=== PATIENT | female | born 1995 | race Caucasian/White ===

== ENCOUNTER 2019-03-25 11:10 | Inpatient (IN) | payer OTHER ==
[2019-03-25 13:37] VITALS: BMI 18.1
--- NOTE | 2019-03-25 14:34 | HP ---
COWS - Scale Resting Pulse: 1= [place] 81-100 Sweatin= Chills/Flushing Restless Observation: 0= Sits Still Pupil Size: 0= Normal to Room Light Bone or Joint Aches: 1= Mild Discomfort Runny Nose/ Eye Tearin= Runny Nose/Eyes GI Upset > 30mins: 2= Nausea/Diarrhea Tremor Observation: 2= Slight Tremor Visible Yawning Observation: 1= 1-2x During Session Anxiety or Irritability: 1=Feels Anxious/Irritable Goose Flesh Skin: 0=Smooth Skin COWS Score: 11 CIWA Score Nausea/Vomitin Muscle Tremors: 5 Anxiety: 4-Mod. Anxious/Guarded Agitation: 1-Slight > Activity Paroxysmal Sweats: 1-Minimal Palms Moist Orientation: 1-Uncertain about Date Tacttile Disturbances: 0-None Auditory Disturbances: 1-Very Mild Visual Disturbances: 2-Mild Sensitivity Headache: 2-Mild CIWA-Ar Total Score: 19 - Admission Criteria OAS Guidelines: Admission for Medically Managed Detox: Requires at least one of the followin. CIWA greater than 12 2. Seizures within the past 24 hours 3. Delirium tremens within the past 24 hours 4. Hallucinations within the past 24 hours 5. Acute intervention needed for co occurring medical disorder 6. Acute intervention needed for co occurring psychiatric disorder 7. Severe withdrawal that cannot be handled at a lower level of care (continued vomiting, continued diarrhea, abnormal vital signs) requiring intravenous medication and/or fluids 8. 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 Last time in detox was in June 2018 while in [place]. She has a history of overdose and black outs, denies seizures. Exam Limitations: No Limitations - Ebola screening Have you traveled outside of the country in the last 21 days: No (N) Have you had contact with anyone from an Ebola affected area: No Do you have a fever: No - Review of Systems Constitutional: Loss of Appetite, Malaise, Changes in sleep, Weakness EENT: reports: Nose Congestion Respiratory: reports: No Symptoms reported Cardiac: reports: No Symptoms Reported GI: reports: Nausea, Abdominal cramping : reports: Dysuria Musculoskeletal: reports: Back Pain, Muscle Pain Integumentary: reports: Dryness Neuro: reports: Headache, Tremors, Weakness Endocrine: reports: No Symptoms Reported Hematology: reports: No Symptoms Reported Psychiatric: reports: Judgement Intact, Mood/Affect Appropiate, Anxious Other Systems: Reviewed and Negative Patient History - Patient Medical History Hx Seizures: Yes (xanax related 2016) Hx Diabetes: No Hx Gastrointestinal Disorders: No Hx Liver Disease: Yes (elevated liver tests sometimes 'due to ketamine') Hx Genitourinary Disorders: No Hx Sexually Transmitted Disorders: Yes (hx gonorrhea, herpes) Hx Renal Disease (ESRD): No Hx Thyroid Disease: No Hx Human Immunodeficiency Virus (HIV): No Hx Hepatitis C: No Hx Depression: Yes (hx meds - hx psych - none now) Hx Suicide Attempt: No Hx Bipolar Disorder: No Hx Schizophrenia: No - Patient Surgical History Past Surgical History: No - PPD History Previous Implant?: Yes Documented Results: Negative w/o proof Implanted On Prior [facility] Admission?: No PPD to be Administered?: Yes - Reproductive History Patient is a Female of Child Bearing Age (11 -55 yrs old): Yes Patient : No - Smoking Cessation Smoking history: Current every day smoker Have you smoked in the past 12 months: Yes Aproximately how many cigarettes per day: 1 (juule) Initiated information on smoking cessation: Yes 'Breaking Loose' booklet given: 03/25/19 (give on floor) - Substance & Tx. History Hx Alcohol Use: No Hx Substance Use: Yes Substance Use Type: Cocaine, Marijuana, Opiates, Tranquilizers Hx Substance Use Treatment: Yes (detox,hx suboxone, hx methadone) - Substances abused Heroin Substance route: Injection Frequency: Daily Amount used: 10-12 bags/day (URINE TOX + FENTANYL ONLY) Age of first use: 19 Date of last use: 03/25/19 Ketamine Substance route: Inhalation Frequency: Daily Amount used: 2 gm/day Age of first use: 18 Date of last use: 03/25/19 Alprazolam (Xanax) Frequency: 3-6 times per week Amount used: two bars Age of first use: 17 Date of last use: 03/25/19 Marijuana/Hashish Substance route: Smoking Frequency: Daily Amount used: $40 Age of first use: 13 Date of last use: 03/25/19 Cocaine Substance route: Inhalation Frequency: 1-2 times per week Amount used: 2 lines Age of first use: 17 Date of last use: 03/22/19 Family Disease History - Family Disease History Family Disease History: Other: Father (living, ), Mother (no contact - hx etoh and drugs), Brother (one - healthy - depression) Admission Physical Exam [facility] - Vital Signs Vital Signs: Vital Signs - 24 hr 03/25/19 13:25 Temperature 97.3 F L Pulse Rate 88 Respiratory 20 Rate Blood Pressure 106/66 - Physical General Appearance: Yes: Nourished, Appropriately Dressed, Mild Distress, Anxious HEENTM: Yes: EOMI, Hearing grossly Normal, Normocephalic, Normal Voice Respiratory: Yes: Normal Breath Sounds, No Respiratory Distress Neck: Yes: No masses,lesions,Nodules, Supple Breast: Yes: Breast Exam Deferred Cardiology: Yes: Regular Rhythm, Regular Rate Abdominal: Yes: Flat, Soft Genitourinary: Yes: Dysuria Back: Yes: Normal Inspection Musculoskeletal: Yes: full range of Motion, Gait Steady, Back pain, Muscle Pain Extremities: Yes: Normal Inspection, Normal Range of Motion, Tremors Neurological: Yes: Alert, Normal Response Integumentary: Yes: Normal Color, Dry, Warm, Track Huggins (antecubital space right arm - no overt abscess noted) Lymphatic: Yes: Within Normal Limits Cleared for Admission [facility] - Detox or Rehab [facility] Level of Care: Medically Managed Detox Regimen/Protocol: Methadone/Valium Breathalyzer - Breathalyzer Breathalyzer: 0 Urine Drug Screen - Test Device Lot number: [id number] Expiration date: 12/01/20 - Control Is test valid?: Yes - Results Drug screen NEGATIVE: No Urine drug screen results: THC-Marijuana, PAWEL-Cocaine, FEN-Fentanyl, BZO- Benzodiazepines Inpatient Rehab Admission - Rehab Decision to Admit Inpatient rehab admission?: No
[2019-03-25] MEDS ORDERED: MAGNESIUM CITRATE 300 ML BOTTLE PO PRN (14:48)
[2019-03-25] MEDS ORDERED: BISMUTH SUBSALICYLATE 524 MG/30 ML UD PO PRN (14:48)
[2019-03-25] MEDS ORDERED: MENTHOL/PHENOL 1 EACH UD MM PRN (14:48)
[2019-03-25] MEDS ORDERED: ACETAMINOPHEN 325 MG TABLET (FP) PO PRN (14:48)
[2019-03-25] MEDS ORDERED: MAG HYDROX/AL HYDROX/SIMETH 30 ML UNIT-DOSE CUP PO PRN (14:48)
[2019-03-25] MEDS ORDERED: IBUPROFEN 400 MG TABLET (FP) PO PRN (14:48)
[2019-03-25] MEDS ORDERED: MAGNESIUM HYDROX 2400MG/30ML ORAL SUSPENSION 30 ML CUP PO PRN (14:48)
[2019-03-25] MEDS ORDERED: diazePAM 5 MG TABLET PO ONE (14:51)
[2019-03-25] MEDS ORDERED: METHADONE HCL 10 MG TABLET (FOR DETOX USE ONLY) PO ONE ×2 (14:52→23:00)
[2019-03-25] MEDS: diazePAM 5 MG TABLET PO SCH (22:03)
[2019-03-25] MEDS: THIAMINE HCL 100 MG TABLET (FP) PO SCH (22:03)
[2019-03-25] MEDS: MELATONIN 5 MG TABLETS PO PRN (22:03)
[2019-03-26] MEDS: diazePAM 5 MG TABLET PO SCH ×3 (05:40→21:11)
--- NOTE | 2019-03-26 08:54 | CONSULT ---
[facility] Psychiatric Consult - Data Date of interview: 03/26/19 Admission source: [facility] Identifying data: 23 y/o female single, no children, domiciled, employed as a model Substance Abuse History: This is her first admission to [facility], she has a history of polysubstance use disorder Heroin, Cocaine, Xanax, Cannabis, Ketamine. She has been using drugs daily for that past 6 mo following her discharge from [facility] 7 mo ago. She was detoxed in [place] last year. She explained that she was on Meyhadone , dislike the taste, she tried Suboxone and felt the treatment has been ineffective Medical History: Her medical history is unremarkable Psychiatric History: She explained that she feels depressed with poor sleep, poor appetite and weight loss. She has no prior contact with mental health intensive care medicine specialist. She denies suicidal or homicadal ideation Physical/Sexual Abuse/Trauma History: Denied Mental Status Exam - Mental Status Exam Alert and Oriented to: Place, Person Cognitive Function: Fair Patient Appearance: Well Groomed Mood: Depressed Affect: Appropriate Patient Behavior: Passive, Fatigued, Appropriate, Cooperative Speech Pattern: Clear Voice Loudness: Normal Thought Process: Intact Thought Disorder: Not Present Hallucinations: None Suicidal Ideation: None Homicidal Ideation: None Insight/Judgement: Poor Sleep: Fair Appetite: Poor, Weight loss Muscle strength/Tone: Normal Gait/Station: Normal Psychiatric Findings - Problem List ([place] 1, 2,3) (1) Depression Current Visit: Yes Status: Acute (2) Opioid abuse Current Visit: Yes Status: Acute (3) Benzodiazepine abuse Current Visit: Yes Status: Acute - Initial Treatment Plan Initial Treatment Plan: Continue detox treatment. Monitor progress. No medication treatment initiated at this time, she woud benefit from additional psychiatric evaluation and monitoring to assess the need for SSRI medication treatment
[2019-03-26] MEDS ORDERED: METHADONE HCL 10 MG TABLET (FOR DETOX USE ONLY) PO ONE (10:00)
[2019-03-26] MEDS: PRENATAL VITAMINS W/ FOLIC ACID TABLET (FP) PO SCH (10:13)
[2019-03-26 10:45] LABS: HEMATOCRIT 34.4 % (32.4-45.2); HEMOGLOBIN 11.6 GM/dL (10.7-15.3); MCH 31.3 pg (25.7-33.7); MCHC 33.7 g/dl (32.0-36.0); MEAN CELL VOLUME 92.7 fl (80-96); MEAN PLT VOLUME 8.5 fl (7.5-11.1); PLATELET COUNT 267 K/MM3 (134-434); RBC 3.71 M/mm3 (3.60-5.2); RDW 13.9 % (11.6-15.6); WHITE BLOOD COUNT 4.9 K/mm3 (4.0-10.0)
[2019-03-26 10:54] LABS: ALBUMIN 3.4 g/dl (3.4-5.0); BILIRUBIN,TOTAL 0.3 mg/dL (0.2-1); BLOOD UREA NITROGEN 6.4 mg/dL (7-18); CALCIUM 8.6 mg/dL (8.5-10.1); CREATININE 0.7 mg/dL (0.55-1.3); POTASSIUM 4.2 mmol/L (3.5-5.1); TOT PROT 6.8 g/dl (6.4-8.2)
[2019-03-26 11:14] LABS: URINE APPEARANCE TURBID; URINE BILIRUBIN NEGATIVE (NEGATIVE); URINE COLOR YELLOW; URINE GLUCOSE (UA) NEGATIVE (NEGATIVE); URINE KETONE NEGATIVE (NEGATIVE); URINE LEUK ESTERASE NEGATIVE (NEGATIVE); URINE NITRITE NEGATIVE (NEGATIVE); URINE PROTEIN NEGATIVE (NEGATIVE); URINE UROBILINOGEN 0.2 mg/dL (0.2-1.0)
--- NOTE | 2019-03-26 12:59 | EKG ---
Test Reason : Blood Pressure : / mmHG Vent. Rate : 063 BPM Atrial Rate : 063 BPM P-R Int : 174 ms QRS Dur : 090 ms QT Int : 422 ms P-R-T Axes : 057 075 059 degrees QTc Int : 431 ms NORMAL SINUS RHYTHM WITH SINUS ARRHYTHMIA NORMAL ECG NO PREVIOUS ECGS AVAILABLE Confirmed by PHYLLIS CABRERA MD ([id number]) on 03/26/2019 12:59:24 PM Referred By: SHARMAINE PHAM Confirmed By:PHYLLIS CABRERA MD
--- NOTE | 2019-03-26 16:32 | PN ---
[facility] CIWA - CIWA Score Nausea/Vomitin-Mild Nausea/No Vomiting Muscle Tremors: 4-Moderate,w/Arms Extend Anxiety: 4-Mod. Anxious/Guarded Agitation: 3 Paroxysmal Sweats: 3 Orientation: 0-Oriented Tacttile Disturbances: 0-None Auditory Disturbances: 0-None Visual Disturbances: 0-None Headache: 0-None Present CIWA-Ar Total Score: 15 S COWS - Scale Resting Pulse: 0= [place] 80 or Below Sweatin=Flushed/Facial Moisture Restless Observation: 3= Extraneous Movement Pupil Size: 0= Normal to Room Light Bone or Joint Aches: 2= Severe Diffuse Aches Runny Nose/ Eye Tearin= Runny Nose/Eyes GI Upset > 30mins: 3= Vomiting/Diarrhea Tremor Observation of Outstretched Hands: 2= Slight Tremor Visible Yawning Observation: 0= None Anxiety or Irritability: 2=Irritable/Anxious Goose Flesh Skin: 0=Smooth Skin COWS Score: 16 [facility] Progress Note (SOAP) Subjective: Nausea, body ache, sweating, chills, tremor, interrupted sleep Objective: 03/26/19 16:29 Last Vital Signs Temp Pulse Resp BP Pulse Ox 98.1 F 76 18 105/61 03/26/19 14:21 03/26/19 14:21 03/26/19 14:21 03/26/19 14:21 Laboratory Tests 03/25/19 03/26/19 03/26/19 07:50 08:00 08:00 WBC 4.9 RBC 3.71 Hgb 11.6 Hct 34.4 MCV 92.7 MCH 31.3 MCHC 33.7 RDW 13.9 Plt Count 267 MPV 8.5 Sodium 141 Potassium 4.2 Chloride 106 Carbon Dioxide 28 Anion Gap 7 L BUN 6.4 L Creatinine 0.7 Est GFR (CKD-EPI)AfAm 140.55 Est GFR (CKD-EPI)NonAf 121.27 Random Glucose 90 Calcium 8.6 Total Bilirubin 0.3 AST 25 ALT 72 H Alkaline Phosphatase 170 H Total Protein 6.8 Albumin 3.4 Urine Color Yellow Urine Appearance Turbid Urine pH 6.0 Ur Specific [place] 1.020 Urine Protein Negative Urine Glucose (UA) Negative Urine Ketones Negative Urine Blood Negative Urine Nitrite Negative Urine Bilirubin Negative Urine Urobilinogen 0.2 Ur Leukocyte Esterase Negative RPR Titer 03/26/19 08:00 WBC RBC Hgb Hct MCV MCH MCHC RDW Plt Count MPV Sodium Potassium Chloride Carbon Dioxide Anion Gap BUN Creatinine Est GFR (CKD-EPI)AfAm Est GFR (CKD-EPI)NonAf Random Glucose Calcium Total Bilirubin AST ALT Alkaline Phosphatase Total Protein Albumin Urine Color Urine Appearance Urine pH Ur Specific [place] Urine Protein Urine Glucose (UA) Urine Ketones Urine Blood Urine Nitrite Urine Bilirubin Urine Urobilinogen Ur Leukocyte Esterase RPR Titer Nonreactive Labs reviewed: alk phos 170 Assessment: 03/26/19 16:31 Withdrawal symptoms Elevated alk phos noted Plan: Continue detox Encouraged PO water hydration Elevated alkaline phosphatase: could be r/t IV drug use, repeat alk phos in AM
[2019-03-26] MEDS: diazePAM 5 MG TABLET PO PRN (17:05)
[2019-03-26] MEDS: MELATONIN 5 MG TABLETS PO PRN (21:11)
[2019-03-26] MEDS: METHOCARBAMOL 500 MG TABLET PO PRN (21:11)
[2019-03-26] MEDS: THIAMINE HCL 100 MG TABLET (FP) PO SCH (21:11)
[2019-03-26] MEDS: cloNIDine HCL 0.1 MG TABLET PO PRN (22:46)
[2019-03-27] MEDS: diazePAM 5 MG TABLET PO PRN ×3 (05:12→17:58)
[2019-03-27] MEDS ORDERED: METHADONE HCL 10 MG TABLET (FOR DETOX USE ONLY) PO ONE (10:00)
[2019-03-27] MEDS: PRENATAL VITAMINS W/ FOLIC ACID TABLET (FP) PO SCH (11:18)
[2019-03-27] MEDS: diazePAM 5 MG TABLET PO SCH ×2 (11:18→22:18)
--- NOTE | 2019-03-27 13:56 | PN ---
[facility] CIWA - CIWA Score Nausea/Vomitin-No Nausea/No Vomiting Muscle Tremors: 3 Anxiety: 3 Agitation: 3 Paroxysmal Sweats: 3 Orientation: 0-Oriented Tacttile Disturbances: 0-None Auditory Disturbances: 0-None Visual Disturbances: 0-None Headache: 0-None Present CIWA-Ar Total Score: 12 S COWS - Scale Resting Pulse: 0= [place] 80 or Below Sweatin= Chills/Flushing Restless Observation: 1= Difficult to Sit Still Pupil Size: 0= Normal to Room Light Bone or Joint Aches: 2= Severe Diffuse Aches Runny Nose/ Eye Tearin= Runny Nose/Eyes GI Upset > 30mins: 0= None Tremor Observation of Outstretched Hands: 1= Tremor [place], Not Seen Yawning Observation: 1= 1-2x During Session Anxiety or Irritability: 2=Irritable/Anxious Goose Flesh Skin: 0=Smooth Skin COWS Score: 10 [facility] Progress Note (SOAP) Subjective: sweats shakes body aches stomach cramp interrupted sleep Objective: 03/27/19 13:55 Vital Signs Temperature 98.1 F 03/27/19 09:22 Pulse Rate 72 03/27/19 09:22 Respiratory Rate 16 03/27/19 09:22 Blood Pressure 109/59 L 03/27/19 09:22 O2 Sat by Pulse Oximetry (%) Laboratory Tests 03/25/19 03/26/19 03/26/19 07:50 08:00 08:00 WBC 4.9 RBC 3.71 Hgb 11.6 Hct 34.4 MCV 92.7 MCH 31.3 MCHC 33.7 RDW 13.9 Plt Count 267 MPV 8.5 Sodium 141 Potassium 4.2 Chloride 106 Carbon Dioxide 28 Anion Gap 7 L BUN 6.4 L Creatinine 0.7 Est GFR (CKD-EPI)AfAm 140.55 Est GFR (CKD-EPI)NonAf 121.27 Random Glucose 90 Calcium 8.6 Total Bilirubin 0.3 AST 25 ALT 72 H Alkaline Phosphatase 170 H Total Protein 6.8 Albumin 3.4 Urine Color Yellow Urine Appearance Turbid Urine pH 6.0 Ur Specific [place] 1.020 Urine Protein Negative Urine Glucose (UA) Negative Urine Ketones Negative Urine Blood Negative Urine Nitrite Negative Urine Bilirubin Negative Urine Urobilinogen 0.2 Ur Leukocyte Esterase Negative RPR Titer 03/26/19 08:00 WBC RBC Hgb Hct MCV MCH MCHC RDW Plt Count MPV Sodium Potassium Chloride Carbon Dioxide Anion Gap BUN Creatinine Est GFR (CKD-EPI)AfAm Est GFR (CKD-EPI)NonAf Random Glucose Calcium Total Bilirubin AST ALT Alkaline Phosphatase Total Protein Albumin Urine Color Urine Appearance Urine pH Ur Specific [place] Urine Protein Urine Glucose (UA) Urine Ketones Urine Blood Urine Nitrite Urine Bilirubin Urine Urobilinogen Ur Leukocyte Esterase RPR Titer Nonreactive aaox3 ambulating no acute distress Assessment: 03/27/19 13:55 withdrawal sx Plan: continue detox increase fluids
[2019-03-27] MEDS: cloNIDine HCL 0.1 MG TABLET PO PRN (16:52)
[2019-03-27] MEDS: THIAMINE HCL 100 MG TABLET (FP) PO SCH (22:18)
[2019-03-27] MEDS: MELATONIN 5 MG TABLETS PO PRN (22:19)
[2019-03-27] MEDS: METHOCARBAMOL 500 MG TABLET PO PRN (22:20)
[2019-03-28] MEDS ORDERED: diazePAM 5 MG TABLET PO SCH (06:00)
[2019-03-28] MEDS ORDERED: METHADONE HCL 10 MG TABLET (FOR DETOX USE ONLY) PO ONE (10:00)
[2019-03-28] MEDS: PRENATAL VITAMINS W/ FOLIC ACID TABLET (FP) PO SCH (10:33)
[2019-03-28] MEDS: diazePAM 5 MG TABLET PO PRN (10:35)
[2019-03-28] MEDS: METHOCARBAMOL 500 MG TABLET PO PRN ×2 (10:36→22:30)
[2019-03-28] MEDS ORDERED: NICOTINE POLACRILEX 4 MG GUM BUC PRN (11:02)
--- NOTE | 2019-03-28 11:05 | PN ---
S CIWA - CIWA Score Nausea/Vomitin-No Nausea/No Vomiting Muscle Tremors: 3 Anxiety: 1-Mildly Anxious Agitation: 1-Slight > Activity Paroxysmal Sweats: 1-Minimal Palms Moist Orientation: 0-Oriented Tacttile Disturbances: 0-None Auditory Disturbances: 0-None Visual Disturbances: 0-None Headache: 0-None Present CIWA-Ar Total Score: 6 [facility] COWS - Scale Resting Pulse: 1= [place] 81-100 Sweatin= Chills/Flushing Restless Observation: 1= Difficult to Sit Still Pupil Size: 0= Normal to Room Light Bone or Joint Aches: 1= Mild Discomfort Runny Nose/ Eye Tearin= None GI Upset > 30mins: 0= None Tremor Observation of Outstretched Hands: 1= Tremor [place], Not Seen Yawning Observation: 1= 1-2x During Session Anxiety or Irritability: 1=Feels Anxious/Irritable Goose Flesh Skin: 0=Smooth Skin COWS Score: 7 S Progress Note (SOAP) Subjective: sweats anxiety i am feeling a bit better Objective: 03/28/19 11:04 Vital Signs Temperature 98.1 F 03/28/19 09:48 Pulse Rate 100 H 03/28/19 09:48 Respiratory Rate 16 03/28/19 09:48 Blood Pressure 106/70 03/28/19 09:48 O2 Sat by Pulse Oximetry (%) Laboratory Tests 03/25/19 03/25/19 03/26/19 07:50 14:21 08:00 WBC 4.9 RBC 3.71 Hgb 11.6 Hct 34.4 MCV 92.7 MCH 31.3 MCHC 33.7 RDW 13.9 Plt Count 267 MPV 8.5 Sodium Potassium Chloride Carbon Dioxide Anion Gap BUN Creatinine Est GFR (CKD-EPI)AfAm Est GFR (CKD-EPI)NonAf Random Glucose Calcium Total Bilirubin AST ALT Alkaline Phosphatase Total Protein Albumin Urine Color Yellow Urine Appearance Turbid Urine pH 6.0 Ur Specific [place] 1.020 Urine Protein Negative Urine Glucose (UA) Negative Urine Ketones Negative Urine Blood Negative Urine Nitrite Negative Urine Bilirubin Negative Urine Urobilinogen 0.2 Ur Leukocyte Esterase Negative POC Urine HCG, Qual Negative RPR Titer 03/26/19 03/26/19 08:00 08:00 WBC RBC Hgb Hct MCV MCH MCHC RDW Plt Count MPV Sodium 141 Potassium 4.2 Chloride 106 Carbon Dioxide 28 Anion Gap 7 L BUN 6.4 L Creatinine 0.7 Est GFR (CKD-EPI)AfAm 140.55 Est GFR (CKD-EPI)NonAf 121.27 Random Glucose 90 Calcium 8.6 Total Bilirubin 0.3 AST 25 ALT 72 H Alkaline Phosphatase 170 H Total Protein 6.8 Albumin 3.4 Urine Color Urine Appearance Urine pH Ur Specific [place] Urine Protein Urine Glucose (UA) Urine Ketones Urine Blood Urine Nitrite Urine Bilirubin Urine Urobilinogen Ur Leukocyte Esterase POC Urine HCG, Qual RPR Titer Nonreactive labs noted aaox3 ambulating no acute distress Assessment: 03/28/19 11:05 mild withdrawal sx Plan: continue detox increase fluids nicotine gum 4mg as per pt request d/c in am
[2019-03-28] MEDS: MELATONIN 5 MG TABLETS PO PRN (22:30)
[2019-03-28] MEDS: THIAMINE HCL 100 MG TABLET (FP) PO SCH (22:30)
[2019-03-29] MEDS: METHOCARBAMOL 500 MG TABLET PO PRN (05:46)
[2019-03-29] MEDS ORDERED: METHADONE HCL 5 MG TABLET (FOR DETOX USE ONLY) PO ONE (06:00)
[2019-03-29 07:33] VITALS: BP 105/60; PULSE 73; TEMP 97
--- NOTE | 2019-03-29 09:22 | DS ---
[facility] Detox Discharge Summary Admission Date: 03/25/19 Discharge Date: 03/29/19 - History Present History: Opioid Dependence, Sedative Dependence - Physical Exam Results Vital Signs: Vital Signs Temperature 97 F L 03/29/19 07:33 Pulse Rate 73 03/29/19 07:33 Respiratory Rate 18 03/29/19 07:33 Blood Pressure 105/60 03/29/19 07:33 O2 Sat by Pulse Oximetry (%) - Treatment Hospital Course: Detox Protocol Followed, Detoxed Safely, Responded well, Discharged Condition Good, Rehab Referral Accepted - Medication Discharge Medications: Ambulatory Orders NK [No Known Home Medication] 03/25/19 - Diagnosis (1) Benzodiazepine abuse Current Visit: Yes Status: Chronic (2) Depression Current Visit: Yes Status: Acute (3) Opioid abuse Current Visit: Yes Status: Chronic - AMA Did Patient Leave Against Medical Advice: No (pt declined aftercare; referral provided)
== END 2019-03-29 08:35 | disposition home or self-care (01) | DRG 773 ==
LOC: YASAS 11:10 → Y6N 14:56
PROVIDERS: ADMIT Surgery; ATTEND Surgery
PROC: HZ2ZZZZ Detoxification Services for Substance Abuse Treatment (ICD-10-PCS; principal; 2019-03-25)
DX: F11.23 Opioid dependence with withdrawal (principal); F13.10 Sedative, hypnotic or anxiolytic abuse, uncomplicated; F12.20 Cannabis dependence, uncomplicated; F17.210 Nicotine dependence, cigarettes, uncomplicated; F32.9 Major depressive disorder, single episode, unspecified; R74.8 Abnormal levels of other serum enzymes; R94.5 Abnormal results of liver function studies; Z87.42 Personal history of other diseases of the female genital tract; Z86.69 Personal history of other diseases of the nervous system and sense organs
CPT/HCPCS: 36415; 80053; 81003; 81025; 85027; 86593; 93005; 93010; J0735

== ENCOUNTER 2021-03-25 11:35 | Inpatient (IN) | payer OTHER ==
[2021-03-25 12:48] VITALS: BMI 18.3
[2021-03-25] MEDS ORDERED: MAGNESIUM HYDROX 2400MG/30ML ORAL SUSPENSION 30 ML CUP PO PRN (13:01)
[2021-03-25] MEDS ORDERED: MAG HYDROX/AL HYDROX/SIMETH 30 ML UNIT-DOSE CUP PO PRN (13:01)
[2021-03-25] MEDS ORDERED: IBUPROFEN 400 MG TABLET (FP) PO PRN (13:01)
[2021-03-25] MEDS ORDERED: MAGNESIUM CITRATE 300 ML BOTTLE PO PRN (13:01)
[2021-03-25] MEDS ORDERED: cloNIDine HCL 0.1 MG TABLET PO PRN (13:01)
[2021-03-25] MEDS ORDERED: ACETAMINOPHEN 325 MG TABLET (FP) PO PRN ×2 (13:01)
[2021-03-25] MEDS ORDERED: NICOTINE POLACRILEX 2 MG GUM BUC PRN (13:01)
[2021-03-25] MEDS ORDERED: BISMUTH SUBSALICYLATE 524 MG/30 ML PO PRN (13:01)
[2021-03-25] MEDS ORDERED: MENTHOL/PHENOL 1 EACH UD MM PRN (13:01)
[2021-03-25] MEDS ORDERED: ONDANSETRON *ODT* 4 MG TABLET SL PRN (13:01)
[2021-03-25] MEDS ORDERED: diazePAM 5 MG TABLET PO PRN (13:01)
[2021-03-25] MEDS: hydrOXYzine PAMOATE 25 MG CAPSULE (FP) PO SCH ×3 (13:54→22:27)
[2021-03-25] MEDS: NICOTINE 7 MG/24 HOURS TOPICAL PATCH TD SCH (13:54)
[2021-03-25] MEDS: PRENATAL VITAMINS W/ FOLIC ACID TABLET (FP) PO SCH (13:55)
[2021-03-25] MEDS: METHOCARBAMOL 500 MG TABLET PO PRN ×2 (14:00→22:25)
[2021-03-25] MEDS ORDERED: METHADONE HCL 10 MG TABLET (FOR DETOX USE ONLY) PO ONE (14:00)
[2021-03-25 15:50] LABS: HEMATOCRIT 33.3 % (32.4-45.2); HEMOGLOBIN 11.3 GM/dL (10.7-15.3); MCH 29.7 pg (25.7-33.7); MCHC 33.9 g/dl (32.0-36.0); MEAN CELL VOLUME 87.5 fl (80-96); MEAN PLT VOLUME 7.9 fl (7.5-11.1); PLATELET COUNT 360 10^3/uL (134-434); RDW 13.3 % (11.6-15.6); WHITE BLOOD COUNT 7.1 K/mm3 (4.0-10.0)
[2021-03-25 16:03] LABS: CALCIUM 8.5 mg/dL (8.5-10.1)
[2021-03-25 16:04] LABS: ALBUMIN 3.5 g/dl (3.4-5.0); BLOOD UREA NITROGEN 17.8 mg/dL (7-18)
[2021-03-25 16:06] LABS: CREATININE 0.7 mg/dL (0.55-1.3)
[2021-03-25 16:09] LABS: TOT PROT 7.4 g/dl (6.4-8.2)
[2021-03-25 16:13] LABS: BILIRUBIN,TOTAL 0.2 mg/dL (0.2-1)
[2021-03-25 16:52] LABS: HIV INTERPRETATION NEGATIVE (NEGATIVE)
[2021-03-25] MEDS: diazePAM 5 MG TABLET PO SCH ×2 (17:40→22:26)
[2021-03-25] MEDS: THIAMINE HCL 100 MG TABLET (FP) PO SCH (22:25)
[2021-03-25] MEDS: MELATONIN 5 MG TABLETS PO SCH (22:25)
[2021-03-25] MEDS: QUEtiapine FUMARATE 50 MG TABLET PO SCH (22:26)
[2021-03-26] MEDS: diazePAM 5 MG TABLET PO SCH ×4 (05:55→22:26)
[2021-03-26] MEDS: hydrOXYzine PAMOATE 25 MG CAPSULE (FP) PO SCH (05:55)
[2021-03-26] MEDS ORDERED: METHADONE HCL 10 MG TABLET (FOR DETOX USE ONLY) ONE (09:15)
[2021-03-26] MEDS ORDERED: METHADONE HCL 5 MG TABLET (FOR DETOX USE ONLY) ONE (09:15)
[2021-03-26] MEDS ORDERED: METHADONE (DETOX) 20 MG, METHADONE (DETOX) 5 MG PO ONE (10:00)
[2021-03-26] MEDS ORDERED: LOPERAMIDE HCL 2 MG CAPSULE PO ONE (10:15)
[2021-03-26] MEDS ORDERED: METHOCARBAMOL 750 MG TAB PO ONE (10:15)
[2021-03-26] MEDS: PRENATAL VITAMINS W/ FOLIC ACID TABLET (FP) PO SCH (10:36)
[2021-03-26] MEDS: NICOTINE 7 MG/24 HOURS TOPICAL PATCH TD SCH (10:40)
[2021-03-26] MEDS: hydrOXYzine PAMOATE 50 MG CAPSULE (FP) PO SCH ×3 (11:40→22:26)
[2021-03-26] MEDS ORDERED: COVID-19 VAC,AD26(JANSSEN)/PF 0.5 ML IM ONE (13:00)
[2021-03-26] MEDS: MELATONIN 5 MG TABLETS PO SCH (22:25)
[2021-03-26] MEDS: THIAMINE HCL 100 MG TABLET (FP) PO SCH (22:25)
[2021-03-26] MEDS: QUEtiapine FUMARATE 50 MG TABLET PO SCH (22:25)
[2021-03-26] MEDS: METHOCARBAMOL 500 MG TABLET PO PRN (22:28)
[2021-03-27] MEDS: diazePAM 5 MG TABLET PO SCH ×2 (05:53→14:03)
[2021-03-27] MEDS: hydrOXYzine PAMOATE 50 MG CAPSULE (FP) PO SCH ×3 (05:54→18:04)
[2021-03-27] MEDS: NICOTINE 7 MG/24 HOURS TOPICAL PATCH TD SCH (09:18)
[2021-03-27] MEDS: METHOCARBAMOL 500 MG TABLET PO PRN (09:18)
[2021-03-27] MEDS: PRENATAL VITAMINS W/ FOLIC ACID TABLET (FP) PO SCH (09:18)
[2021-03-27] MEDS ORDERED: METHADONE HCL 10 MG TABLET (FOR DETOX USE ONLY) PO ONE (10:00)
[2021-03-27 19:02] VITALS: BP 122/80; PULSE 106; TEMP 97.8
[2021-03-28] MEDS ORDERED: diazePAM 5 MG TABLET PO SCH (06:00)
[2021-03-28] MEDS ORDERED: METHADONE (DETOX) 10 MG, METHADONE (DETOX) 5 MG PO ONE (10:00)
[2021-03-29] MEDS ORDERED: diazePAM 5 MG TABLET PO ONE (06:00)
[2021-03-29] MEDS ORDERED: METHADONE HCL 10 MG TABLET (FOR DETOX USE ONLY) PO ONE (10:00)
[2021-03-30] MEDS ORDERED: METHADONE HCL 5 MG TABLET (FOR DETOX USE ONLY) PO ONE (06:00)
== END 2021-03-27 18:37 | disposition left against medical advice (07) | DRG 770 ==
LOC: YASAS 11:35 → Y6N 13:14
PROVIDERS: ADMIT Allergy & Immunology; ATTEND Allergy & Immunology
PROC: HZ2ZZZZ Detoxification Services for Substance Abuse Treatment (ICD-10-PCS; principal; 2021-03-25)
DX: F11.23 Opioid dependence with withdrawal (principal); F10.230 Alcohol dependence with withdrawal, uncomplicated; F13.230 Sedative, hypnotic or anxiolytic dependence with withdrawal, uncomplicated; F12.20 Cannabis dependence, uncomplicated; F15.10 Other stimulant abuse, uncomplicated; F17.210 Nicotine dependence, cigarettes, uncomplicated; F19.24 Other psychoactive substance dependence with psychoactive substance-induced mood disorder; F19.282 Other psychoactive substance dependence with psychoactive substance-induced sleep disorder; F32.9 Major depressive disorder, single episode, unspecified; Z86.59 Personal history of other mental and behavioral disorders
CPT/HCPCS: 0031A; 36415; 80053; 85027; 86780; 87389; 91303; 93005; 93010; C9803; Q0162; U0003; U0005

== ENCOUNTER 2021-04-30 19:24 | Inpatient (IN) | payer OTHER ==
[2021-04-30] MEDS ORDERED: MENTHOL/PHENOL 1 EACH UD MM PRN (22:41)
[2021-04-30] MEDS ORDERED: MAG HYDROX/AL HYDROX/SIMETH 30 ML UNIT-DOSE CUP PO PRN (22:41)
[2021-04-30] MEDS ORDERED: NALOXONE (NARCAN) HCL 4 MG/0.1 ML SPRAY NS PRN (22:41)
[2021-04-30] MEDS ORDERED: methaDONE HCL 10 MG TABLET (FOR DETOX USE ONLY) PO ONE (22:41)
[2021-04-30] MEDS ORDERED: ACETAMINOPHEN 325 MG TABLET (FP) PO PRN ×2 (22:41)
[2021-04-30] MEDS ORDERED: MAGNESIUM CITRATE 300 ML BOTTLE PO PRN (22:41)
[2021-04-30] MEDS ORDERED: cloNIDine HCL 0.1 MG TABLET PO PRN (22:41)
[2021-04-30] MEDS ORDERED: NICOTINE POLACRILEX 2 MG GUM BUC PRN (22:41)
[2021-04-30] MEDS ORDERED: IBUPROFEN 400 MG TABLET (FP) PO PRN (22:41)
[2021-04-30] MEDS ORDERED: BISMUTH SUBSALICYLATE 524 MG/30 ML PO PRN (22:41)
[2021-04-30] MEDS ORDERED: MAGNESIUM HYDROX 2400MG/30ML ORAL SUSPENSION 30 ML CUP PO PRN (22:41)
[2021-05-01 00:43] VITALS: BMI 18.8
[2021-05-01] MEDS: diazePAM 5 MG TABLET PO SCH ×5 (01:18→22:13)
[2021-05-01] MEDS ORDERED: methaDONE HCL 10 MG TABLET (FOR DETOX USE ONLY) ONE (09:15)
[2021-05-01] MEDS: PRENATAL VITAMINS W/ FOLIC ACID TABLET (FP) PO SCH (10:02)
[2021-05-01 10:30] LABS: HEMATOCRIT 33.2 % (32.4-45.2); HEMOGLOBIN 11.2 GM/dL (10.7-15.3); MCH 29.8 pg (25.7-33.7); MCHC 33.7 g/dl (32.0-36.0); MEAN CELL VOLUME 88.5 fl (80-96); MEAN PLT VOLUME 7.8 fl (7.5-11.1); PLATELET COUNT 383 10^3/uL (134-434); RBC 3.75 M/mm3 (3.60-5.2); RDW 13.5 % (11.6-15.6); WHITE BLOOD COUNT 5.1 K/mm3 (4.0-10.0)
[2021-05-01 11:14] LABS: CALCIUM 8.5 mg/dL (8.5-10.1)
[2021-05-01 11:15] LABS: BLOOD UREA NITROGEN 10.8 mg/dL (7-18)
[2021-05-01 11:18] LABS: CREATININE 0.5 mg/dL (0.55-1.3)
[2021-05-01 11:19] LABS: BILIRUBIN,TOTAL 0.2 mg/dL (0.2-1)
[2021-05-01 11:20] LABS: TOT PROT 6.5 g/dl (6.4-8.2)
[2021-05-01] MEDS: diazePAM 5 MG TABLET PO PRN ×2 (12:16→18:39)
[2021-05-01] MEDS: METHOCARBAMOL 500 MG TABLET PO PRN (17:01)
[2021-05-01] MEDS: THIAMINE HCL 100 MG TABLET (FP) PO SCH (22:13)
[2021-05-01] MEDS: MELATONIN 5 MG TABLETS PO SCH (22:14)
[2021-05-02] MEDS: METHOCARBAMOL 500 MG TABLET PO PRN ×3 (06:31→22:06)
[2021-05-02] MEDS: diazePAM 5 MG TABLET PO SCH ×3 (06:32→22:07)
[2021-05-02] MEDS ORDERED: methaDONE HCL 10 MG TABLET (FOR DETOX USE ONLY) PO ONE (10:00)
[2021-05-02] MEDS: diazePAM 5 MG TABLET PO PRN ×2 (10:32→18:13)
[2021-05-02] MEDS: PRENATAL VITAMINS W/ FOLIC ACID TABLET (FP) PO SCH (11:11)
[2021-05-02] MEDS ORDERED: NICOTINE 10 MG CARTRIDGE (INHALER) IH PRN (12:16)
[2021-05-02] MEDS: THIAMINE HCL 100 MG TABLET (FP) PO SCH (22:06)
[2021-05-02] MEDS: MELATONIN 5 MG TABLETS PO SCH (22:06)
[2021-05-03] MEDS ORDERED: diazePAM 5 MG TABLET PO SCH (06:00)
[2021-05-03] MEDS: METHOCARBAMOL 500 MG TABLET PO PRN ×2 (06:31→12:49)
[2021-05-03] MEDS ORDERED: methaDONE HCL 10 MG TABLET (FOR DETOX USE ONLY) ONE (09:11)
[2021-05-03] MEDS: PRENATAL VITAMINS W/ FOLIC ACID TABLET (FP) PO SCH (10:36)
[2021-05-03] MEDS: diazePAM 5 MG TABLET PO PRN (10:42)
[2021-05-03 13:13] VITALS: BP 114/73; PULSE 87; TEMP 96.9
[2021-05-04] MEDS ORDERED: diazePAM 5 MG TABLET PO ONE (06:00)
[2021-05-04] MEDS ORDERED: methaDONE HCL 10 MG TABLET (FOR DETOX USE ONLY) PO ONE (10:00)
== END 2021-05-03 15:55 | disposition home or self-care (01) | DRG 773 ==
LOC: YASAS 19:24 → Y3N 23:55
PROVIDERS: ADMIT Allergy & Immunology; ATTEND Allergy & Immunology
PROC: HZ2ZZZZ Detoxification Services for Substance Abuse Treatment (ICD-10-PCS; principal; 2021-04-30)
DX: F11.23 Opioid dependence with withdrawal (principal); F13.230 Sedative, hypnotic or anxiolytic dependence with withdrawal, uncomplicated; F15.10 Other stimulant abuse, uncomplicated; F17.210 Nicotine dependence, cigarettes, uncomplicated
CPT/HCPCS: 36415; 80053; 81025; 85027; 86780; C9803; U0003; U0005

== ENCOUNTER 2021-12-29 00:54 | Inpatient (IN) | payer OTHER ==
[2021-12-29 01:27] VITALS: BMI 24.8
[2021-12-29] MEDS ORDERED: BISMUTH SUBSALICYLATE 524 MG/30 ML PO PRN (03:02)
[2021-12-29] MEDS ORDERED: IBUPROFEN 400 MG TABLET (FP) PO PRN (03:02)
[2021-12-29] MEDS ORDERED: ACETAMINOPHEN 325 MG TABLET (FP) PO PRN (03:02)
[2021-12-29] MEDS ORDERED: ONDANSETRON *ODT* 4 MG TABLET SL PRN (03:02)
[2021-12-29] MEDS ORDERED: methaDONE HCL 10 MG TABLET (FOR DETOX USE ONLY) PO ONE (03:02)
[2021-12-29] MEDS ORDERED: MENTHOL/PHENOL 1 EACH UD MM PRN (03:02)
[2021-12-29] MEDS ORDERED: LOPERAMIDE HCL 2 MG CAPSULE PO PRN (03:02)
[2021-12-29] MEDS ORDERED: MAG HYDROX/AL HYDROX/SIMETH 30 ML UNIT-DOSE CUP PO PRN (03:02)
[2021-12-29] MEDS: METHOCARBAMOL 500 MG TABLET PO PRN ×2 (05:10→17:59)
[2021-12-29] MEDS: cloNIDine HCL 0.1 MG TABLET PO PRN ×2 (05:10→10:36)
[2021-12-29] MEDS: ACETAMINOPHEN 325 MG TABLET (FP) PO PRN (05:12)
[2021-12-29] MEDS: diazePAM 5 MG TABLET PO PRN ×3 (10:32→22:12)
[2021-12-29] MEDS: PRENATAL VITAMINS W/ FOLIC ACID TABLET (FP) PO SCH (10:33)
[2021-12-29 13:05] LABS: HEMATOCRIT 33.7 % (32.4-45.2); HEMOGLOBIN 11.3 GM/dL (10.7-15.3); MCH 29.4 pg (25.7-33.7); MCHC 33.4 g/dl (32.0-36.0); MEAN PLT VOLUME 8.9 fl (7.5-11.1); PLATELET COUNT 361 10^3/uL (134-434); RBC 3.84 M/mm3 (3.60-5.2); RDW 13.2 % (11.6-15.6); WHITE BLOOD COUNT 6.8 K/mm3 (4.0-10.0)
[2021-12-29 13:14] LABS: CALCIUM 9.1 mg/dL (8.5-10.1)
[2021-12-29 13:17] LABS: CREATININE 0.8 mg/dL (0.55-1.3)
[2021-12-29 13:19] LABS: BILIRUBIN,TOTAL 0.5 mg/dL (0.2-1); TOT PROT 8.1 g/dl (6.4-8.2)
[2021-12-29] MEDS: MAGNESIUM HYDROX 2400MG/30ML ORAL SUSPENSION 30 ML CUP PO PRN (19:03)
[2021-12-29] MEDS: MELATONIN 5 MG TABLETS PO SCH (22:09)
[2021-12-29] MEDS: THIAMINE HCL 100 MG TABLET (FP) PO SCH (22:10)
[2021-12-30] MEDS: diazePAM 5 MG TABLET PO PRN ×4 (06:15→22:06)
[2021-12-30] MEDS: NICOTINE 10 MG CARTRIDGE (INHALER) IH PRN ×4 (06:20→22:07)
[2021-12-30] MEDS: MAGNESIUM CITRATE 300 ML BOTTLE PO PRN (06:20)
[2021-12-30] MEDS: METHOCARBAMOL 500 MG TABLET PO PRN (06:20)
[2021-12-30] MEDS ORDERED: methaDONE HCL 10 MG TABLET (FOR DETOX USE ONLY) ONE (09:34)
[2021-12-30] MEDS: PRENATAL VITAMINS W/ FOLIC ACID TABLET (FP) PO SCH (10:20)
[2021-12-30] MEDS: cloNIDine HCL 0.1 MG TABLET PO PRN ×2 (12:46→22:56)
[2021-12-30] MEDS: THIAMINE HCL 100 MG TABLET (FP) PO SCH (22:04)
[2021-12-30] MEDS: MELATONIN 5 MG TABLETS PO SCH (22:04)
[2021-12-31] MEDS: diazePAM 5 MG TABLET PO PRN ×4 (05:46→20:16)
[2021-12-31] MEDS: NICOTINE 10 MG CARTRIDGE (INHALER) IH PRN ×5 (05:47→23:02)
[2021-12-31 06:06] LABS: SARS-CoV-2 NAA Not Detected (Not Detected)
[2021-12-31] MEDS ORDERED: methaDONE HCL 10 MG TABLET (FOR DETOX USE ONLY) PO ONE (10:00)
[2021-12-31] MEDS: PRENATAL VITAMINS W/ FOLIC ACID TABLET (FP) PO SCH (10:10)
[2021-12-31] MEDS: cloNIDine HCL 0.1 MG TABLET PO PRN ×2 (13:32→18:16)
[2021-12-31] MEDS: METHOCARBAMOL 500 MG TABLET PO PRN ×2 (13:32→22:26)
[2021-12-31] MEDS: MAGNESIUM HYDROX 2400MG/30ML ORAL SUSPENSION 30 ML CUP PO PRN (18:17)
[2021-12-31] MEDS: QUEtiapine FUMARATE 50 MG TABLET PO SCH (22:22)
[2021-12-31] MEDS: THIAMINE HCL 100 MG TABLET (FP) PO SCH (22:22)
[2021-12-31] MEDS: MELATONIN 5 MG TABLETS PO SCH (22:22)
[2022-01-01] MEDS: NICOTINE 10 MG CARTRIDGE (INHALER) IH PRN ×3 (08:39→22:22)
[2022-01-01] MEDS ORDERED: methaDONE HCL 10 MG TABLET (FOR DETOX USE ONLY) ONE (09:12)
[2022-01-01] MEDS: PRENATAL VITAMINS W/ FOLIC ACID TABLET (FP) PO SCH (10:15)
[2022-01-01] MEDS: QUEtiapine FUMARATE 50 MG TABLET PO SCH ×2 (10:16→22:23)
[2022-01-01] MEDS: METHOCARBAMOL 500 MG TABLET PO PRN ×2 (10:19→17:54)
[2022-01-01] MEDS: MAGNESIUM CITRATE 300 ML BOTTLE PO PRN (18:10)
[2022-01-01] MEDS: THIAMINE HCL 100 MG TABLET (FP) PO SCH (22:23)
[2022-01-01] MEDS: MELATONIN 5 MG TABLETS PO SCH (22:23)
[2022-01-01] MEDS: ACETAMINOPHEN 325 MG TABLET (FP) PO PRN (22:23)
[2022-01-02] MEDS: NICOTINE 10 MG CARTRIDGE (INHALER) IH PRN (08:55)
[2022-01-02 09:04] VITALS: BP 123/74; PULSE 91; TEMP 98
[2022-01-02] MEDS ORDERED: methaDONE HCL 10 MG TABLET (FOR DETOX USE ONLY) PO ONE (10:00)
[2022-01-02] MEDS: PRENATAL VITAMINS W/ FOLIC ACID TABLET (FP) PO SCH (10:15)
[2022-01-02] MEDS: QUEtiapine FUMARATE 50 MG TABLET PO SCH (10:17)
[2022-01-02] MEDS: METHOCARBAMOL 500 MG TABLET PO PRN (10:19)
== END 2022-01-02 11:40 | disposition home or self-care (01) | DRG 773 ==
LOC: YASAS 00:54 → Y3N 03:36
PROVIDERS: ADMIT Allergy & Immunology; ATTEND Allergy & Immunology
PROC: HZ2ZZZZ Detoxification Services for Substance Abuse Treatment (ICD-10-PCS; principal; 2021-12-29)
DX: F11.23 Opioid dependence with withdrawal (principal); F10.230 Alcohol dependence with withdrawal, uncomplicated; F13.20 Sedative, hypnotic or anxiolytic dependence, uncomplicated; F15.10 Other stimulant abuse, uncomplicated; F17.290 Nicotine dependence, other tobacco product, uncomplicated; F19.282 Other psychoactive substance dependence with psychoactive substance-induced sleep disorder; F19.24 Other psychoactive substance dependence with psychoactive substance-induced mood disorder; F31.9 Bipolar disorder, unspecified; R56.9 Unspecified convulsions; Z72.89 Other problems related to lifestyle; Z56.0 Unemployment, unspecified; Z91.410 Personal history of adult physical and sexual abuse
CPT/HCPCS: 36415; 80053; 85027; 86780; 93005; 93010; C9803-CS; J0735; Q0162; U0003; U0005